=== PATIENT | female | born 1940 | race Caucasian/White ===

== ENCOUNTER 2023-12-08 08:11 | Outpatient (OUT) | payer MEDICARE, OTHER, SELFPAY ==
--- NOTE | 2023-12-08 08:28 | MR_ITS ---
The [address] [address] Patient Name: BARRINGTON SANDHU MRN: [id number] date: 1940 Sex: F Assigned Patient Location: LAB Current Patient Location: LAB Accession/Order Number: [id number] Exam Date: 12/08/2023 08:51 Report Date: 12/08/2023 13:10 At the request of: LUCHO CONCEPCION Procedure: MR head/brain wo con PROCEDURE: MR head/brain wo con COMPARISON: None. HISTORY: Left Sided Tinnitus H93.12, Left Ear Fullness H93.8X2 TECHNIQUE: A variety of imaging planes and parameters were utilized for visualization of suspected pathology. Images were performed without and/or with intravenous contrast. FINDINGS: IACS: No evidence of acoustic schwannoma or other posterior fossa mass. INNER EARS: No abnormal signal intensity. MIDDLE EARS: No fluid or abnormal soft tissue. MASTOIDS: No fluid or abnormal soft tissue. SKULL BASE: Negative. Cavernous sinus and Meckel's caves are normal. CEREBRUM: No edema, hemorrhage, mass, acute infarction, or inappropriate atrophy. CEREBELLUM: Age-appropriate atrophy is present, without visible acute hemorrhage or lesion. BRAINSTEM: No edema, hemorrhage, mass, acute infarction, or inappropriate atrophy. CSF SPACES: Ventricles, cisterns, and sulci are appropriate for age. No hydrocephalus, subarachnoid hemorrhage, or mass. SINUSES: Limited views demonstrate no significant mucosal thickening or fluid. ORBITS: Limited views are unremarkable. OTHER: No abnormal meningeal or parenchymal enhancement. MR/MR head/brain wo con IMPRESSION: 1. No abnormal or suspicious findings to account for patient's symptoms. Electronically authenticated by: DREW ESCOBAR Date: 12/08/2023 13:10
[2023-12-08 08:32] LABS: Estimated GFR (African America >60 (>=60); Estimated GFR (Non-African Ame >60 (>=60)
== END 2023-12-08 08:12 | disposition home or self-care (01) ==
PROVIDERS: PCP Family Medicine; Visit Provider Otolaryngology
DX: H93.12 Tinnitus, left ear (principal); H93.8X2 Other specified disorders of left ear
CPT/HCPCS: 36415; 70551; 82565